=== PATIENT | male | born 1960 | race African-American/Black ===

== ENCOUNTER 2017-12-06 19:00 | Emergency (ER) | payer MEDICARE, OTHER ==
[~2017-12-06] VITALS: Ht 170.2 cm; Wt 81.6 kg
[2017-12-06 22:59] VITALS: BP 154/90
[2017-12-06] MEDS ORDERED: LACTULOSE 20Gm/30ML SOLN PO ONE (23:30)
[2017-12-06] MEDS ORDERED: DERMOPLAST 60ML BOTTLE TOP ONE (23:30)
[2017-12-06] MEDS ORDERED: DEXAMETHASONE SOD PHOS 10MG/1ML VIAL INJ IM ONE (23:45)
== END 2017-12-07 00:44 | disposition home or self-care (01) ==
LOC: ER 19:05
DX: K59.00 Constipation, unspecified (principal); K64.4 Residual hemorrhoidal skin tags
CPT/HCPCS: 74176; 96372; 99284; J1100

== ENCOUNTER 2019-04-04 11:41 | Emergency (ER) | payer MEDICARE, MEDICAID ==
[~2019-04-04] VITALS: Ht 170.2 cm; Wt 80.7 kg
[2019-04-04 11:45] VITALS: BP 136/86
== END 2019-04-04 14:20 | disposition home or self-care (01) ==
LOC: ER 11:41
DX: K61.0 Anal abscess (principal); H60.91 Unspecified otitis externa, right ear

== ENCOUNTER 2023-01-17 10:47 | Emergency (ER) | payer OTHER, MEDICAID ==
[~2023-01-17] VITALS: Ht 170.2 cm; Wt 77.2 kg
[2023-01-17 11:10] VITALS: BP 149/88; PULSE 84; RESP 20; TEMP 98.4; O2SAT 97
[2023-01-17] MEDS ORDERED: AZIT500T66 PO (12:51)
[2023-01-17] MEDS ORDERED: PRED20TA2 PO (12:52)
== END 2023-01-17 13:03 | disposition home or self-care (01) ==
LOC: ER 10:47
DX: J03.90 Acute tonsillitis, unspecified (principal); F17.210 Nicotine dependence, cigarettes, uncomplicated
CPT/HCPCS: 71045